=== PATIENT | male | born 1970 | race Caucasian/White ===

== ENCOUNTER 2021-07-29 10:45 | Outpatient (CLI) | payer BC ==
[~2021-07-29] VITALS: Ht 180.3 cm; Wt 146.1 kg
[2021-07-29 10:50] VITALS: BP 132/69
[2021-07-29] MEDS ORDERED: ACETAMINOPHEN 500 MG TAB (TYLENOL) PO PRN (11:00)
[2021-07-29] MEDS ORDERED: ONDANSETRON 4 MG/2 ML (SDV) Z0FRAN IV PRN (11:00)
[2021-07-29] MEDS ORDERED: CASIRIVIMAB/IMDEVIMAB 1,200 MG in NS (IVPB) 250 ML IV ONE (11:00)
[2021-07-29] MEDS ORDERED: diphenhydrAMINE 50 MG/ML INJ (BENADRYL) IV PRN (11:00)
[2021-07-29] MEDS ORDERED: EPINEPHrine INJECTION 1 MG/ML AMP IM PRN (11:00)
[2021-07-29 13:10] VITALS: BP 130/86
== END 2021-07-29 13:11 ==
LOC: INFUSION 10:45
PROVIDERS: ATTEND Student in an Organized Health Care Education/Training Program
DX: U07.1 COVID-19 (principal)

== ENCOUNTER → 2023-07-11 | Outpatient (CLI) | payer BC ==
[~2023-07-11] VITALS: Ht 180.3 cm; Wt 143.2 kg
[~2023-07-11] MED LIST: APIX5TAB PO; HYDR25TA4 PO; LOSA100T58 PO
== END | disposition home or self-care (01) ==
LOC: PREOP 05:36
PROVIDERS: ATTEND Orthopaedic Surgery
DX: Z01.818 Encounter for other preprocedural examination (principal)

== ENCOUNTER 2023-07-18 08:20 | Day surgery (SDC) | payer BC ==
--- NOTE | 2023-07-11 06:40 | HISTORY AND PHYSICAL ---
DATE OF SERVICE: 07/18/2023 This will be for outpatient surgery on 07/18/2023. HISTORY: The patient is a 52-year-old gentleman with complaints of left knee pain. He has known osteoarthritis and has undergone treatment with corticosteroids and bracing. He has done physical therapy without relief. He reports chronic swelling in his knee. He reports that over the last few months, he has developed sudden sharp pain with catching and popping in his knee. He underwent an MRI, which revealed medial meniscus tear as well as tricompartmental osteoarthritis. The patient does not desire a total knee arthroplasty currently and like to proceed with an arthroscopy understanding this can help with his mechanical symptoms, but would not alleviate his arthritic symptoms. REVIEW OF SYSTEMS: No chest pain. No shortness of breath. No dysuria. PAST MEDICAL HISTORY: Atrial fibrillation, hypertension. PAST SURGICAL HISTORY: Right knee arthroscopy, right shoulder, electrocardioversion, carpal tunnel release on the left, angioplasty, pacemaker, coronary ablation. FAMILY HISTORY: Hypertension, congestive heart failure. PRIMARY CARE PROVIDER: [facility]. MEDICATIONS: Losartan, Eliquis, hydrochlorothiazide. ALLERGIES: NO KNOWN DRUG ALLERGIES. SOCIAL HISTORY: The patient drinks alcohol socially. Denies tobacco use. PHYSICAL EXAMINATION: GENERAL: The patient is well-developed, well-nourished, in no acute distress. HEENT: Normocephalic, atraumatic. Pupils equal, round, reactive. Lateral oropharynx is clear. NECK: Supple. No lymphadenopathy. LUNGS: Clear to auscultation bilaterally. HEART: Regular rate and rhythm. ABDOMEN: Soft, nontender, nondistended. EXTREMITIES: The left knee demonstrates moderate effusion. He is tender along his lateral joint line as well as his medial joint line. He has pain with patellar loading. He ambulates with an antalgic gait. Range of motion is 0/3/110. He has pain medially with Des's. Trace anterior drawer, negative posterior drawer. 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 PLAN: Left knee arthroscopy with partial medial meniscectomy and chondroplasty. The risks, benefits, options, ramifications and recovery have been discussed at length with the patient. He understands and wishes to proceed. Job ID: [id number] DocumentID: [id number] Dictated Date: 07/02/2023 08:19:31 Asp Net Developer Date: 07/02/2023 11:16:00 Dictated By: DENYS LAINEZ MD
[2023-07-18] VITALS (11 sets, daily range): BP systolic 84–142; BP diastolic 59–95
[~2023-07-18] VITALS: Ht 180.3 cm; Wt 143.2 kg
[~2023-07-18 08:20] MED LIST changes: +HYDROcodone/ACETAMINOPHEN 7.5 MG/325 MG TABLET PO PRN
[2023-07-18] MEDS ORDERED: ceFAZolin INJECTION 2,000 MG in NS (IVPB) 50 ML 50 ML IV ONE (08:45)
[2023-07-18] MEDS ORDERED: LACTATED RINGERS 1,000 ML 1,000 ML IV PRN (08:45)
--- NOTE | 2023-07-18 09:15 | Progress Note-Pre Operative ---
Pre-Operative Progress Note Date of Available H&P: Jul 11, 2023 Date H&P Reviewed: Jul 18, 2023 Time H&P Reviewed: 09:13 Changes from last HP none Pre-Operative Diagnosis: left medial and lateral meniscus tears and chondromalacia DENYS LAINEZ MD Jul 18, 2023 09:15
--- NOTE | 2023-07-18 09:16 | Progress Note-Post Operative ---
Post-Operative Progess Note Surgeon (s)/Lettuce Cutter (s) Surgeon DENYS LAINEZ MD Lettuce Cutter: Harjeet Hamilton Pre-Operative Diagnosis left medial and lateral meniscus tears and chondromalacia Post-Operative Diagnosis left medial and lateral meniscus tears and chondromalacia Procedure & Operative Findings Date of Procedure 07/18/23 Procedure Performed/Findings left knee arthroscopic partial medial and lateral meniscectomies and chondroplasty of Anesthesia Type GETA Estimated Blood Loss Estimated blood loss (mL): minimal Specimens/Packing Specimens Removed none Packing: none DENYS LAINEZ MD Jul 18, 2023 09:16
[2023-07-18] MEDS ORDERED: MIDAZOLAM INJ 2 MG/2 ML VIAL ONE (09:48)
[2023-07-18] MEDS ORDERED: fentaNYL INJECTION 100 MCG/2 ML VIAL ONE (09:48)
[2023-07-18] MEDS ORDERED: dexAMETHasone INJ 10 MG/ML 1 ML VIAL ONE (09:48)
[2023-07-18] MEDS ORDERED: LIDOCAINE PF 2% 5 ML VIAL ONE (09:48)
[2023-07-18] MEDS ORDERED: proPOfol INJECTION 200 MG/20 ML VIAL IV ONE (09:48)
[2023-07-18] MEDS ORDERED: ONDANSETRON INJECTION 4 MG/2 ML (SDV) ONE (09:48)
[2023-07-18] MEDS ORDERED: BUPIVACAINE 0.25% 30 ML VIAL ONE (10:03)
[2023-07-18] MEDS ORDERED: morphine PRESERVATIVE free 10 MG/10 ML AMP ONE (10:03)
[2023-07-18] MEDS ORDERED: HYDROmorphone INJECTION 2 MG/ML VIAL ONE (11:08)
[2023-07-18] MEDS ORDERED: SEVOFLURANE (ULTANE) 15 ML INHAL SOLN ONE (11:37)
--- NOTE | 2023-07-18 14:37 | Anesthesia-General Post-Op ---
General Patient Condition Mental Status/LOC: Same as Preop Cardiovascular: Satisfactory Nausea/Vomiting: Absent Respiratory: Satisfactory Pain: Controlled Complications: Absent Post Op Complications Complications None Follow Up Care/Instructions Patient Instructions None needed. Anesthesia/Patient Condition Patient Condition Patient was doing well this morning after the procedure with no complaints, stable vital signs, no apparent adverse anesthesia problems. No complications reported per nursing. SHOAIB FOX DO Jul 18, 2023 14:37
--- NOTE | 2023-07-18 17:45 | OPERATIVE REPORT ---
DATE OF SERVICE: 07/18/2023 PREOPERATIVE DIAGNOSES: 1. Left knee medial meniscus tear. 2. Left knee chondromalacia of medial femoral condyle. 3. Left knee lateral meniscus tear. POSTOPERATIVE DIAGNOSES: 1. Left knee medial meniscus tear. 2. Left knee chondromalacia of medial femoral condyle. 3. Left knee chondromalacia patella. 4. Left knee chondromalacia of the trochlea. 5. Left knee adhesions. PROCEDURES: 1. Left knee arthroscopic partial medial meniscectomy. 2. Left knee arthroscopic chondroplasty of the medial femoral condyle. 3. Left knee arthroscopic chondroplasty of the patella. 4. Left knee arthroscopic chondroplasty of the trochlea. 5. Left knee arthroscopic lysis of adhesions. SURGEON: Gerardo Lainez MD METAL CEILING BUILDER: Harjeet Hamilton, who assisted throughout the procedure and closed the incisions. ANESTHESIA: General endotracheal by Dr. Salguero. TOURNIQUET TIME: Not applicable. DRAINS: None. COMPLICATIONS: None. POSTOPERATIVE PLAN: Routine arthroscopy protocol. The patient was transferred to the recovery room awake and in stable condition. STATEMENT OF MEDICAL NECESSITY: The patient is a 52-year-old gentleman with complaints of left knee pain, catching, locking and swelling and stiffness. He has undergone treatment with injections, anti-inflammatories and rest without relief. Due to functional impairment and failure to improve with conservative measures, the patient elected to proceed with surgical intervention. Radiographs did reveal significant joint space narrowing medially in his patellofemoral joint, he understands an arthroscopy could help with his mechanical symptoms, but would not alleviate his arthritic symptoms. Arthroscopic findings demonstrated a grade II chondral flap of the inferior aspect of his patella in a 8 x 8 area. Trochlea demonstrated grade IV chondral flap in a 10 x 10 area. The medial and lateral gutters and anterior compartment demonstrated dense fibrous tissue. The ACL and PCL were intact. The lateral compartment demonstrated no significant meniscal or chondral pathology. The medial compartment demonstrated a tear of the anterior horn/body junction involving approximately 30% of the junction. In addition, there is grade III chondral flap over the anterior portion of the femoral condyle in a 20 x 20 area. DESCRIPTION OF PROCEDURE: After risks and benefits of the procedure were discussed and questions were answered and informed consent was signed and placed on chart, the operative site was confirmed in the preoperative holding area initialed by surgeon. The patient was then transferred to the operating room and after adequate levels of general endotracheal anesthetic were obtained, timeout was called, confirming the operative site. The left lower extremity was prepped and draped in the usual sterile fashion. The patient was noted to have limited flexion compared to the contralateral side and lacks 2 degrees of extension. The knee joint was injected with 60 mL of fluid and standard inferolateral portal was placed with arthroscope. Under direct visualization, an inferior medial portal was created. The fibrous tissue throughout the medial and lateral gutters and the anterior compartment were debrided back to a stable edge. The unstable chondral flaps on the patella and trochlea were debrided with a shaver back to a stable edge. Scope was redirected into the medial compartment and unstable chondral flaps of the medial femoral condyle were debrided back to a stable edge and the medial meniscus tear was debrided with a shaver back to a stable edge. This was carefully probed with no further tearing or instability noted. The knee was copiously irrigated. The portal sites were closed with 4-0 nylon in simple interrupted fashion. Knee was injected with Duramorph. Portal sites were infiltrated with plain Marcaine. A soft dressing was applied. The patient was noted to have symmetric flexion and extension at the conclusion of the procedure and was transferred to the operating room and transported to the recovery room awake and stable condition. Job ID: [id number] DocumentID: [id number] Dictated Date: 07/18/2023 11:36:46 Cardiology Specialist Date: 07/18/2023 17:42:00 Dictated By: GERARDO LAINEZ MD
== END 2023-07-18 13:35 | disposition home or self-care (01) ==
LOC: SDC 08:20
PROVIDERS: ATTEND Orthopaedic Surgery
DX: S83.242A Other tear of medial meniscus, current injury, left knee, initial encounter (principal); M94.262 Chondromalacia, left knee; M23.8X2 Other internal derangements of left knee
CPT/HCPCS: 87081